=== PATIENT | male | born 1990 | race Two or more races ===

== ENCOUNTER 2016-08-19 04:45 | Emergency (ER) | payer MEDICAID, OTHER ==
[~2016-08-19] VITALS: Ht 175.3 cm; Wt 83.9 kg
[2016-08-19] MEDS ORDERED: NEOMYCIN-BACITRACIN-POLYM UNITDOSE PKG TOP OINT TOP ONE (08:30)
[2016-08-19] MEDS ORDERED: LIDOCAINE 2%HCL (LOCAL ANESTH.) INJ 20ML MDV ID ONE (08:30)
[2016-08-19 11:10] VITALS: BP 141/77
[2016-08-19] MEDS ORDERED: TETANUS-DIPTH-ACEL PERTUSSIS 0.5ML SYRG IM ONE (11:45)
== END 2016-08-19 12:01 | disposition home or self-care (01) ==
LOC: ER 04:51
DX: S02.2XXA Fracture of nasal bones, initial encounter for closed fracture (principal); S02.42XA Fracture of alveolus of maxilla, initial encounter for closed fracture; S02.5XXA Fracture of tooth (traumatic), initial encounter for closed fracture; S01.111A Laceration without foreign body of right eyelid and periocular area, initial encounter; S01.81XA Laceration without foreign body of other part of head, initial encounter; S50.311A Abrasion of right elbow, initial encounter; Z23 Encounter for immunization; Y00.XXXA Assault by blunt object, initial encounter; Y93.89 Activity, other specified; Y99.8 Other external cause status; Y92.89 Other specified places as the place of occurrence of the external cause
CPT/HCPCS: 12013; 70450; 70486; 72125; 90471; 90715